=== PATIENT | female | born 1945 | race Caucasian/White ===

== ENCOUNTER → 2019-04-27 | Outpatient (CLI) | payer MEDICARE, OTHER ==
--- NOTE | 2019-04-27 15:20 | RAD ---
EXAM: Dual energy x-ray absorptiometry (DEXA). HISTORY: Post menopausal screening. TECHNIQUE: Dual energy x-ray absorptiometry of the lumbar spine and the left hip was performed. T-score of average bone mineral density based was calculated based on standard deviations above or below the expected young adult normal value. Diagnostic definitions were established by the World Health Organization. FINDINGS: The average bone mineral density associated with L1-L4 is 1.242 g/cm^2, corresponding with a T-score of 0.9. The average total bone mineral density associated with the left hip is 0.815 g/cm^2, corresponding with a T-score of -1.1. In comparison with the prior study of 04/18/2015, average bone mineral density at the lumbar spine has changed -2.9%, while the average density at the left hip has changed +3.3%. Refer to the worksheets for full detail. IMPRESSION: 1. Osteopenia. Average bone mineral density yields a T-score between -1.0 and -2.5. Fracture risk is increased. Electronically signed by: Shannon Jimenez MD (04/27/2019 3:17 PM) [facility]
== END | disposition home or self-care (01) ==
LOC: DXRAD 12:49
PROVIDERS: ATTEND Family Medicine
DX: Z13.820 Encounter for screening for osteoporosis (principal); M85.88 Other specified disorders of bone density and structure, other site; Z78.0 Asymptomatic menopausal state
CPT/HCPCS: 77080

== ENCOUNTER → 2021-05-01 | Outpatient (CLI) | payer MEDICARE, OTHER ==
--- NOTE | 2021-05-01 13:54 | RAD ---
INDICATION: Screening for osteopenia/osteoporosis. Reason: M85.80 / Spl. Instructions: / History: . Postmenopausal follow-up. COMPARISON: March 2019 TECHNIQUE: Bone densitometry was performed through the lumbar spine and proximal femur. IMPRESSION: Lumbar Spine: BMD: 1.26 T-Score: 0.7 Range: Normal. Similar when compared to prior. There is some sclerosis within the vertebral bodies wh ich could be secondary to degenerative changes. Proximal Femur: BMD: 0.82 T-Score: -1.1 Range: Osteopenic. Similar to prior. World Health Organization Criteria for Bone Density: T-Score: > -1.0: Normal Range < -1.0 to -2.5: Osteopenic Range < -2.5: Osteoporotic Range Electronically signed by: Jerome Vallejo MD (05/01/2021 1:52 PM) [id number]
== END ==
LOC: DXRAD 12:52
PROVIDERS: ATTEND Family Medicine
DX: M85.88 Other specified disorders of bone density and structure, other site (principal)
CPT/HCPCS: 77080